=== PATIENT | male | born 1975 | race Caucasian/White ===

== ENCOUNTER 2016-11-15 03:10 | Inpatient (IN) | payer OTHER ==
[~2016-11-15] VITALS: Ht 114.3 cm; Wt 79.2 kg
[~2016-11-15 03:10] MED LIST: ALBUTEROL SULF8.5 GM IH; ATHENOL325 MG PO; BACTRIM,SEPT1 TABLET PO; BENADRYL ALLERG25 MG PO; BENADRYL25 MG PO; BENICAR5 MG PO; CLEOCIN150 MG PO; CLEOCIN300 MG PO; CLINDAMYCIN HC300 MG PO; CLINDAMYCIN PO; DILAUDID2 MG PO; DOXYCYCLINE HY100 M3 PO; DOXYCYCLINE HY100 MG PO; KEFLEX500 MG PO; LIDODERM 5% P1 PATCH TD; LINEZOLID600 MG PO; LISINOPRIL20 MG PO; LISINOPRIL30 MG PO; LISINOPRIL40 MG PO; LISINOPRIL5 MG PO; LYRICA100 MG PO; METHADONE10 MG PO; METHADOSE10 MG PO; MORPHINE SULFAT15 M1 PO; MORPHINE SULFAT30 M2 PO; NEURONTIN300 MG PO; OXYCODONE HCL10 MG PO; OXYCODONE HCL20 M1 PO; OXYCODONE HCL30 MG PO; OXYCODONE HCL5 MG PO; OXYCODONE15 MG PO; OXYCONTIN30 MG PO; OxyCODONE PO; PEPCID20 MG PO; PERCOCET; PERCOCET 10-321 EACH PO; PERCOCET 5/31 TABLET PO; PREDNISONE20 MG PO; PREDNISONE50 MG PO; PRINIVIL20 MG PO; PRINZIDE 20-121 EACH PO; Percocet 5/325,Endoc PO; SEPTRA DS TABL1 EACH PO; TESSALON PERLE100 MG PO; TIZANIDINE HCL4 M1 PO; TIZANIDINE HCL4 MG PO; TYLENOL REGULA325 MG PO; VENLAFAXINE H37.5 M3 PO; VENTOLIN HFA18 GM IH; VIBRAMYCIN100 MG PO; ZESTORETIC 20-1 EAC1 NG; ZESTORETIC 20-1 EAC1 PO; ZESTORETIC,P1 TABLE1 PO; ZESTORETIC,P1 TABLE2 PO; ZYVOX600 MG PO
[2016-11-15 03:48] LABS: HEMATOCRIT 35.9 % (38.0-50.0); MCH 27.9 PG (29.0-34.0); MCHC 31.5 G/DL (30.0-36.0); MCV 88.6 FL (86-99); PLATELET COUNT 263 K/uL (156-360); RBC DIS.WIDTH-CV 17.2 % (11.8-14.6); RBC DIS.WIDTH-SD 55.8 % (39-53); RED BLOOD COUNT 4.05 M/uL (4.00-5.50); WHITE BLOOD COUNT 10.4 K/uL (4.1-10.2)
[2016-11-15 03:59] LABS: CHLORIDE 95 mEq/L (99-109); POTASSIUM 3.5 mEq/L (3.7-5.4); SODIUM 133 mEq/L (136-147)
[2016-11-15 04:01] LABS: GLUCOSE 122 mg/dL (70-99)
[2016-11-15 04:02] LABS: ANION GAP 16 MEQ/L (2-14)
[2016-11-15 04:03] LABS: TOTAL BILIRUBIN 0.5 mg/dL (0.0-1.0)
[2016-11-15 04:04] LABS: ALKALINE PHOSPHATASE 204 IU/L (3-129)
[2016-11-15 04:05] LABS: GFR ESTIMATE (CALCULATED) 22 mL/min/
[2016-11-15 04:06] LABS: UREA NITROGEN (BUN) 35 mg/dL (9-23)
[2016-11-15 04:08] LABS: LIPASE 21 U/L (1.0-51.0)
[2016-11-15 04:46] LABS: ADD MIUA? YES; BILIRUBIN NEGATIVE; BLOOD MODERATE; COLOR YELLOW ((YELLOW)); GLUCOSE (STRIP) NEGATIVE; KETONES NEGATIVE; LEUKOCYTES NEGATIVE; NITRITE NEGATIVE; PROTEIN (STRIP) 100; SPECIFIC GRAVITY 1.014 (1.000-1.030); UROBILINOGEN 0.2 MG/DL (0.2-1.0)
[2016-11-15 04:58] LABS: BACTERIA RARE /HPF; EPITHELIAL CELLS RARE /HPF; HYALINE CASTS 0-5 /LPF; MUCUS TRACE /LPF; RED BLOOD CELLS 0-5 /HPF (0-5); UCUL ADDED? NO
[2016-11-15 06:21] LABS: CREATINE KINASE 270 IU/L (1-294)
[2016-11-15 06:51] LABS: AMPHETAMINES QUANT VALUE 0 NG/ML; BARBITUATES QUANT VALUE 0 NG/ML; BENZODIAZEPINES QUANT VALUE 0 NG/ML; BENZODIAZEPINES, URINE SCREEN Negative (200 ng/mL); MARIJUANA QUANT VALUE 0 NG/ML; PHENCYCLIDINE QUANT VALUE 0 NG/ML
[2016-11-15] MEDS ORDERED: LISINOPRIL20 MG PO (07:28)
[2016-11-15] MEDS ORDERED: FUROSEMIDE20 MG PO (07:30)
[2016-11-15] MEDS ORDERED: LYRICA75 MG PO (07:31)
[2016-11-15] MEDS ORDERED: OXYCODONE HCL30 MG PO (07:31)
[2016-11-15 09:21] VITALS: BP 128/65
[2016-11-15 11:13] VITALS: BP 120/64
[2016-11-15 15:48] LABS: CHLORIDE 104 mEq/L (99-109); POTASSIUM 3.9 mEq/L (3.7-5.4); SODIUM 136 mEq/L (136-147)
[2016-11-15 15:50] LABS: GLUCOSE 99 mg/dL (70-99)
[2016-11-15 15:51] LABS: ANION GAP 10 MEQ/L (2-14)
[2016-11-15 15:52] LABS: TOTAL BILIRUBIN 0.5 mg/dL (0.0-1.0)
[2016-11-15 15:54] LABS: ALKALINE PHOSPHATASE 175 IU/L (3-129); GFR ESTIMATE (CALCULATED) > 59 mL/min/
[2016-11-15 15:55] LABS: UREA NITROGEN (BUN) 25 mg/dL (9-23)
[2016-11-15 16:00] LABS: HEMATOCRIT 34.3 % (38.0-50.0); MCH 27.9 PG (29.0-34.0); MCHC 31.2 G/DL (30.0-36.0); MCV 89.6 FL (86-99); PLATELET COUNT 217 K/uL (156-360); RBC DIS.WIDTH-CV 17.4 % (11.8-14.6); RBC DIS.WIDTH-SD 57.1 % (39-53); RED BLOOD COUNT 3.83 M/uL (4.00-5.50); WHITE BLOOD COUNT 6.4 K/uL (4.1-10.2)
[2016-11-15 17:59] VITALS: BP 113/56
[2016-11-15 20:03] VITALS: BP 116/67
[2016-11-15 21:14] LABS: UR CREATININE CONCENTRATION 91.6 MG/DL
[2016-11-16 00:14] VITALS: BP 157/86
[2016-11-16 03:59] VITALS: BP 180/81
[2016-11-16 04:52] LABS: EOSINOPHIL (%) 2.4 % (0-5); EOSINOPHIL COUNT 0.1 K/uL (0-0.3); HEMATOCRIT 33.8 % (38.0-50.0); IMMATURE GRANULOCYTE (%) 0.2 % (0.0-0.7); INSTRUMENT ABS NEUTROPHIL CT 3.8 K/uL; LYMPHOCYTE COUNT 1.5 K/uL (1.0-2.8); MCH 28.2 PG (29.0-34.0); MCHC 31.4 G/DL (30.0-36.0); MCV 89.9 FL (86-99); MEAN PLAT.VOLUME 10.6 uM^3 (9.0-12.4); MONOCYTE (%) 7.4 % (3-12); MONOCYTE COUNT 0.4 K/uL (0-0.8); NEUTROPHIL (%) 64.1 % (45-76); NEUTROPHIL COUNT 3.8 K/uL (1.8-6.4); PLATELET COUNT 210 K/uL (156-360); RBC DIS.WIDTH-CV 17.2 % (11.8-14.6); RBC DIS.WIDTH-SD 56.3 % (39-53); RED BLOOD COUNT 3.76 M/uL (4.00-5.50); WHITE BLOOD COUNT 5.9 K/uL (4.1-10.2)
[2016-11-16 05:10] LABS: CHLORIDE 100 mEq/L (99-109); POTASSIUM 4.4 mEq/L (3.7-5.4); SODIUM 133 mEq/L (136-147)
[2016-11-16 05:12] LABS: GLUCOSE 106 mg/dL (70-99)
[2016-11-16 05:14] LABS: ANION GAP 7 MEQ/L (2-14)
[2016-11-16 05:16] LABS: GFR ESTIMATE (CALCULATED) > 59 mL/min/
[2016-11-16 05:17] LABS: UREA NITROGEN (BUN) 15 mg/dL (9-23)
[2016-11-16 07:59] VITALS: BP 135/72
[2016-11-16 11:48] VITALS: BP 143/78
[2016-11-16 14:14] LABS: METH RESISTANT S AUREUS PCR POSITIVE (NEGATIVE)
[2016-11-16 14:16] LABS: PROBE CHECK PASS
[2016-11-16 15:03] VITALS: BP 133/69
[2016-11-16 19:30] VITALS: BP 139/76
[2016-11-17 00:17] VITALS: BP 118/66
[2016-11-17 03:39] VITALS: BP 133/90
[2016-11-17 05:57] LABS: HEMATOCRIT 32.5 % (38.0-50.0); MCH 29.6 PG (29.0-34.0); MCHC 32.9 G/DL (30.0-36.0); MCV 89.8 FL (86-99); MEAN PLAT.VOLUME 10.2 uM^3 (9.0-12.4); PLATELET COUNT 183 K/uL (156-360); RBC DIS.WIDTH-CV 17.2 % (11.8-14.6); RBC DIS.WIDTH-SD 56.4 % (39-53); RED BLOOD COUNT 3.62 M/uL (4.00-5.50); WHITE BLOOD COUNT 4.2 K/uL (4.1-10.2)
[2016-11-17 06:21] LABS: ANION GAP 7 MEQ/L (2-14); CHLORIDE 101 MEQ/L (99-109); GFR ESTIMATE (CALCULATED) > 59 mL/min/; GLUCOSE 93 mg/dL (70-99); POTASSIUM 3.8 MEQ/L (3.7-5.4); SAMPLE HEMOLYSIS CHECK 0; SAMPLE ICTERIC CHECK 0; SAMPLE LIPEMIA CHECK 0; SODIUM 137 MEQ/L (136-147); UREA NITROGEN (BUN) 8 mg/dL (9-23)
[2016-11-17 07:02] VITALS: BP 115/58
== END 2016-11-17 14:50 | disposition home or self-care (01) | DRG 392 ==
LOC: EME 03:10 → EDOF 05:30 → 3EAST 07:38
PROVIDERS: Emergency Medicine; Hospitalist; Internal Medicine; Physician Assistant Surgical; Surgery
DX: R10.84 Generalized abdominal pain (principal); E66.01 Morbid (severe) obesity due to excess calories; N17.9 Acute kidney failure, unspecified; Q78.0 Osteogenesis imperfecta; Z68.44 Body mass index [BMI] 60.0-69.9, adult; F32.9 Major depressive disorder, single episode, unspecified; I10 Essential (primary) hypertension; F17.200 Nicotine dependence, unspecified, uncomplicated; G89.29 Other chronic pain; F19.20 Other psychoactive substance dependence, uncomplicated; Z86.14 Personal history of Methicillin resistant Staphylococcus aureus infection
CPT/HCPCS: 71010; 74176; 80048; 80053; 80306 90; 81003; 82550; 82570; 83605; 83630; 83690; 84300; 85025; 85027; 87040; 87177; 87506; 87641; 94640; 99202; 99281; 99285; C9113; G0480; J0360; J1644; J2270; J2543; J2765; J7030; J7050

== ENCOUNTER 2016-11-18 14:42 | Emergency (ER) | payer OTHER ==
[~2016-11-18] VITALS: Ht 144.8 cm; Wt 75.0 kg
[~2016-11-18 14:42] MED LIST changes: +FUROSEMIDE20 MG PO; +LYRICA75 MG PO
[2016-11-18 15:59] LABS: HEMATOCRIT 35.2 % (38.0-50.0); MCH 28.4 PG (29.0-34.0); MCHC 31.3 G/DL (30.0-36.0); MEAN PLAT.VOLUME 10.3 uM^3 (9.0-12.4); PLATELET COUNT 211 K/uL (156-360); RBC DIS.WIDTH-SD 57.1 % (39-53); RED BLOOD COUNT 3.87 M/uL (4.00-5.50)
[2016-11-18 16:04] LABS: CHLORIDE 102 mEq/L (99-109); POTASSIUM 3.8 mEq/L (3.7-5.4); SODIUM 137 mEq/L (136-147)
[2016-11-18 16:06] LABS: GLUCOSE 102 mg/dL (70-99)
[2016-11-18 16:08] LABS: ANION GAP 10 MEQ/L (2-14)
[2016-11-18 16:10] LABS: GFR ESTIMATE (CALCULATED) > 59 mL/min/
[2016-11-18 16:11] LABS: UREA NITROGEN (BUN) 15 mg/dL (9-23)
[2016-11-18 17:01] LABS: BILIRUBIN NEGATIVE; BLOOD NEGATIVE; COLOR YELLOW ((YELLOW)); GLUCOSE (STRIP) 50; KETONES NEGATIVE; LEUKOCYTES NEGATIVE; NITRITE NEGATIVE; PROTEIN (STRIP) 30; UROBILINOGEN 0.2 MG/DL (0.2-1.0)
[2016-11-18 17:04] LABS: ADD MIUA? NO; UCUL ADDED? NO
[2016-11-18 18:17] VITALS: BP 174/95
== END 2016-11-18 18:20 | disposition home or self-care (01) ==
LOC: EME 14:42
DX: M54.9 Dorsalgia, unspecified (principal); Q78.0 Osteogenesis imperfecta; I10 Essential (primary) hypertension; Z87.442 Personal history of urinary calculi; Z86.14 Personal history of Methicillin resistant Staphylococcus aureus infection; F17.200 Nicotine dependence, unspecified, uncomplicated
CPT/HCPCS: 80048; 81003; 85027; 99281; 99284

== ENCOUNTER 2017-05-07 16:21 | Inpatient (IN) | payer OTHER ==
[~2017-05-07] VITALS: Ht 114.3 cm; Wt 81.5 kg
[2017-05-07 17:36] LABS: HEMATOCRIT 37.3 % (38.0-50.0); MCH 29.1 PG (29.0-34.0); MCHC 31.6 G/DL (30.0-36.0); MCV 92.1 FL (86-99); MEAN PLAT.VOLUME 10.1 uM^3 (9.0-12.4); PLATELET COUNT 259 K/uL (156-360); RBC DIS.WIDTH-CV 17.2 % (11.8-14.6); RED BLOOD COUNT 4.05 M/uL (4.00-5.50); WHITE BLOOD COUNT 7.1 K/uL (4.1-10.2)
[2017-05-07 17:45] LABS: CHLORIDE 103 mEq/L (99-109); POTASSIUM 3.5 mEq/L (3.7-5.4); SODIUM 141 mEq/L (136-147)
[2017-05-07 17:47] LABS: GLUCOSE 79 mg/dL (70-99)
[2017-05-07 17:48] LABS: ANION GAP 9 MEQ/L (2-14)
[2017-05-07 17:50] LABS: GFR ESTIMATE (CALCULATED) > 59 mL/min/
[2017-05-07 17:51] LABS: UREA NITROGEN (BUN) 9 mg/dL (9-23)
[2017-05-07 17:57] LABS: TROP-I INTERPRETATION NEGATIVE; TROPONIN-I < 0.01 ng/mL (0.0-0.30)
[2017-05-07] MEDS ORDERED: PERCOCET 5/31 TABLET PO (18:37)
[2017-05-07 21:48] LABS: BASE EXCESS 10.4 mEq/L (-3 to +3); CARBOXY HGB 5.9 % (0-5); COMMENTS - BLOOD GASES C+; DEVICE NC; METHEMOGLOBIN 0.7 % (0-1.5); O2 FLOW 2 L/MIN; PCO2 74 mm Hg (35-45); PO2 115 mm Hg (80-100); SITE LR; pH 7.33 (7.35-7.45)
[2017-05-08 00:51] LABS: BASE EXCESS 9.7 mEq/L (-3 to +3); BICARBONATE 36.1 mEq/L (22-26); CARBOXY HGB 4.8 % (0-5); COMMENTS - BLOOD GASES A+C+; FI02 21 %; METHEMOGLOBIN 0.7 % (0-1.5); PCO2 57 mm Hg (35-45); PO2 49 mm Hg (80-100); SITE RR; pH 7.41 (7.35-7.45)
[2017-05-08 02:25] VITALS: BP 184/91
[2017-05-08 03:31] VITALS: BP 186/94
[2017-05-08 07:26] LABS: ANION GAP 10 MEQ/L (2-14); CHLORIDE 102 MEQ/L (99-109); GFR ESTIMATE (CALCULATED) > 59 mL/min/; GLUCOSE 177 mg/dL (70-99); POTASSIUM 4.6 MEQ/L (3.7-5.4); SAMPLE HEMOLYSIS CHECK 0; SAMPLE ICTERIC CHECK 0; SAMPLE LIPEMIA CHECK 0; SODIUM 140 MEQ/L (136-147); UREA NITROGEN (BUN) 11 mg/dL (9-23)
[2017-05-08 08:09] VITALS: BP 133/85
[2017-05-08 12:35] VITALS: BP 154/91
[2017-05-08 16:13] LABS: SERUM ETHYL ALCOHOL < 10 mg/dL
[2017-05-08 18:07] VITALS: BP 114/65; BP 153/67
[2017-05-08 19:10] VITALS: BP 157/69
[2017-05-09 00:01] VITALS: BP 163/75
[2017-05-09 07:45] VITALS: BP 149/64
[2017-05-09 19:42] VITALS: BP 163/77
[2017-05-10 00:08] VITALS: BP 185/83
[2017-05-10 04:18] VITALS: BP 186/93
[2017-05-10 07:07] VITALS: BP 144/87
[2017-05-10] MEDS ORDERED: PREDNISONE10 MG PO (10:25)
[2017-05-10 11:10] VITALS: BP 177/81
== END 2017-05-10 14:25 | disposition home health service (06) | DRG 190 ==
LOC: EME 16:21 → EDOF 05-08 01:01 → 5SOUTH 05-08 01:01 → ENRESERV 05-08 01:02 → 5SOUTH 05-08 01:54 → ENPENDDIS 05-10 → 5SOUTH 05-10 14:25
PROVIDERS: Emergency Medicine; Hospitalist
PROC: 5A09357 Assistance with Respiratory Ventilation, Less than 24 Consecutive Hours, Continuous Positive Airway Pressure (ICD-10-PCS; principal; 2017-05-08)
DX: J44.1 Chronic obstructive pulmonary disease with (acute) exacerbation (principal); E66.2 Morbid (severe) obesity with alveolar hypoventilation; J96.21 Acute and chronic respiratory failure with hypoxia; I16.0 Hypertensive urgency; I10 Essential (primary) hypertension; E87.2 Acidosis; E87.6 Hypokalemia; D64.9 Anemia, unspecified; F32.9 Major depressive disorder, single episode, unspecified; R73.9 Hyperglycemia, unspecified; M41.9 Scoliosis, unspecified; G89.4 Chronic pain syndrome; F17.210 Nicotine dependence, cigarettes, uncomplicated; Q78.0 Osteogenesis imperfecta; Z68.44 Body mass index [BMI] 60.0-69.9, adult; Z99.3 Dependence on wheelchair; Z86.14 Personal history of Methicillin resistant Staphylococcus aureus infection; Z79.891 Long term (current) use of opiate analgesic
CPT/HCPCS: 36600; 71010; 71260; 80048; 81003; 82306; 82803; 83880; 84484; 85027; 93005; 93971; 94640; 94660; 94799; 99202; 99281; 99285; G0480; J1650; J2930; J7512